=== PATIENT | female | born 2000 | race Two or more races ===

== ENCOUNTER → 2021-11-16 07:14 | Outpatient (CLI) | payer OTHER | END | disposition home or self-care (01) | LOC: NUCLEAR 11-02 07:00 | PROVIDERS: ATTEND Internal Medicine Endocrinology, Diabetes & Metabolism | DX: E05.00 Thyrotoxicosis with diffuse goiter without thyrotoxic crisis or storm (principal) ==

== ENCOUNTER 2021-11-17 07:05 | Outpatient (CLI) | payer OTHER | END 2021-11-17 15:46 | disposition home or self-care (01) | LOC: NUCLEAR 07:05 | DX: E05.00 Thyrotoxicosis with diffuse goiter without thyrotoxic crisis or storm (principal) ==